=== PATIENT | male | born 1955 | race Caucasian/White ===

== ENCOUNTER → 2018-09-14 | Outpatient (CLI) | payer MEDICARE ==
--- NOTE | 2018-09-15 09:49 | SLEEP ---
DATE OF STUDY: 09/14/2018 ATTENDING PHYSICIAN: Dr. Lamonte Walsh. The patient is 63 years old who weighs 167 pounds and has a BMI of 22. The patient's [place] score was 5. The patient underwent a diagnostic study at [facility]. During the night of study, the patient spent 434 minutes in bed and slept for 353 minutes with a sleep efficiency of 81%. Sleep latency was 30 minutes with a REM latency of 241 minutes. Overall, sleep architecture showed increased stage 1 sleep, normal stage 2 sleep, normal slow wave and reduced REM sleep, which was 11% of the total sleep time. During the night of study, the patient had 8 obstructive apneas, 19 mixed apneas, 17 central apneas and 3 hypopneas. The patient's apnea-hypopnea index was 8 per hour with a REM index of 16 per hour. EKG monitoring revealed normal sinus rhythm, average heart rate was 63 beats per minute. No arrhythmia was observed. PLMS were seen at index of 68 per hour and 3 per hour caused EEG arousals. Nocturnal oximetry study revealed an average oxygen saturation of 96% with the lowest of 91%. Due to low AHI, the patient did not meet the split night criteria for CPAP initiation. The patient did not sleep supine due to gastroesophageal reflux disease. IMPRESSION: 1. Mild sleep apnea-hypopnea syndrome with moderate increase during REM sleep. Total AHI 8 per hour with a REM AHI of 16 per hour. 2. No clinically significant nocturnal hypoxia. 3. Severe period limb movements of sleep. RECOMMENDATIONS: 1. The patient has mild sleep apnea. This patient is clinically symptomatic or has comorbid conditions, then the patient's sleep apnea can be treated with either oral appliance or a trial of CPAP titration. 2. Avoid [employer] depressants. 3. Caution regarding driving until symptoms of sleep apnea resolve with above recommendation. 4. The patient should also be further evaluated for symptoms of restless legs during the day. SP BAKER MD DR: JAG/bob JOB#: [id number] / [id number] LAMONTE Carrillo MD
== END | disposition home or self-care (01) ==
LOC: SLPLAB 18:39
PROVIDERS: ATTEND Family Medicine
DX: G47.33 Obstructive sleep apnea (adult) (pediatric) (principal); G47.61 Periodic limb movement disorder
CPT/HCPCS: 95810